=== PATIENT | female | born 1940 | race Caucasian/White ===

== ENCOUNTER 2021-05-26 09:37 | Emergency (ER) | payer MEDICARE, MEDICAID, SELFPAY ==
[2021-05-26] VITALS (14 sets, daily range): BP systolic 142–185; BP diastolic 63–83; PULSE 62–73; RESP 13–21; TEMP 36.6; O2SAT 95–97; BMI 30.2
--- NOTE | 2021-05-26 09:58 | DI.RAD.S_ITS ---
PROCEDURE: XR CHEST 1V INDICATIONS: chest pain TECHNIQUE: One view of the chest was acquired. COMPARISON: [facility], CT, CT ANGIO CHEST PE, 08/16/2020, 19:38. [facility], CR, XR CHEST 1 VIEW, 01/25/2021, 15:30. FINDINGS: Surgical changes and devices: None. Lungs and pleura: An incomplete inspiratory result is noted, causing a crowded appearance to the lung markings. No focal infiltrates are seen. No pneumothorax or significant pleural effusions are seen. Mediastinum: Mediastinal contours appear normal. Heart size is normal. Atherosclerotic calcification of the aortic arch is noted. Bones and chest wall: No suspicious bony lesions. Age-appropriate bony degenerative changes are seen. Overlying soft tissues appear unremarkable. IMPRESSION: Portable chest within normal limits. Dictated by: Figueroa Proctor M.D. on 05/26/2021 at 9:24 Approved by: Figueroa Proctor M.D. on 05/26/2021 at 9:25
[2021-05-26 10:07] LABS: Add Manual Diff / Slide Review NO; Basophils Absolute Auto 0 /uL (0-100); Basophils Percent Auto 1.3 % (0-2); Eosinophils Absolute Auto 100 /uL (0-450); Hematocrit 39.5 % (36-46); Hemoglobin 13.4 g/dL (12.0-16.0); Lymphocytes Absolute Auto 800 /uL (1100-4500); Lymphocytes Percent Auto 24.5 % (25-40); Mean Corpuscular Hemoglobin 31.4 PG (26-34); Mean Corpuscular Volume 92.5 fL (80-100); Monocytes Absolute Auto 300 /uL (0-900); Monocytes Percent Auto 8.4 % (3-14); Neutrophils Absolute Auto 2100 /uL (1500-7000); Neutrophils Percent Auto 61.8 % (50-75); Platelet Count 136 X10^3/uL (150-400); Red Blood Cell Count 4.27 X10^6/uL (4.0-5.2); Red Cell Distribution Width 13.4 % (11.6-14.8); White Blood Cell Count 3.3 X10^3/uL (4.5-11.0)
[2021-05-26 10:14] LABS: Alanine Aminotransferase 16 IU/L (<35); Albumin 4.7 g/dL (3.5-5.0); Albumin Globulin Ratio 1.4 (1.0-2.8); Alkaline Phosphatase 72 U/L (38-126); Aspartate Aminotransferase 30 IU/L (14-36); BUN Creatinine Ratio 15.9 (6-22); Blood Urea Nitrogen 14 mg/dL (7-17); Carbon Dioxide 26 mmol/L (22-32); Chloride 106 mmol/L (98-107); Creatine Kinase 86 U/L (30-135); Estimated Glomerular Filt Rate > 60.0 mL/min (>60); Globulin 3.3 g/dL (1.7-4.1); Glucose 105 mg/dL (80-110); HEMOLYSIS < 15 (0-50); Lipase 93 U/L (23-300); Magnesium 1.9 mg/dL (1.6-2.3); Sodium 139 mmol/L (137-145)
[2021-05-26 10:16] LABS: Prothrombin Time 11.7 SECONDS (10.1-12.7)
[2021-05-26 10:19] LABS: PTT Partial Thromboplastin Tim 31 SECONDS (26.4-36.2)
[2021-05-26 10:26] LABS: Troponin I 0.028 ng/mL (0.01-0.034)
--- NOTE | 2021-05-26 10:53 | ED.CHESTPAIN ---
HPI - Chest Pain General Chief Complaint: Chest Pain Stated Complaint: chest pain, blood pressure high Time Seen by Provider: 05/26/21 10:52 Source: patient and family Mode of arrival: Ambulatory Limitations: language barrier Limitations: no limitations History of Present Illness HPI narrative: This is an 80-year-old female who is Nauruan-speaking. Her son is translating for her at bedside. Patient has had 3 days of chest pain which has been persistent but worsened when her blood pressure is high and improves when it comes back down but does not completely resolve. It radiates to her left back. She denies shortness of breath. No cold, cough or congestion. No fevers. She has had nausea when her blood pressure is high with this but it improves when her blood pressure comes back down. She has not had any vomiting. She denies any diarrhea constipation. No urinary issues. She does have a history of hypertension, dyslipidemia and diabetes. She is on multiple antihypertensives including carvedilol, chlorthalidone, clonidine, hydralazine as well as atorvastatin. Patient states no cardiac stents she had a heart catheterization approximately 10 years ago which was negative. Patient is allergic to penicillin and amlodipine but does not recall what happens with amlodipine. No tobacco, alcohol or illicit. Dr. Lim is her PCP. She has seen a dough machine operator in the past but very remotely. Related Data Home Medications Medication Instructions Recorded Confirmed alendronate 70 mg tablet 70 mg PO QWEEK 05/26/21 05/26/21 aspirin 81 mg tablet,delayed 81 mg PO DAILY 05/26/21 05/26/21 release atorvastatin 40 mg tablet 40 mg PO QPM 05/26/21 05/26/21 carvedilol 6.25 mg tablet 6.25 mg PO BID 05/26/21 05/26/21 chlorthalidone 25 mg tablet 25 mg PO DAILY 05/26/21 05/26/21 cholecalciferol (vitamin D3) 25 25 mcg PO DAILY 05/26/21 05/26/21 mcg (1,000 unit) tablet ciprofloxacin HCl 250 mg tablet 125 mg PO DAILY 05/26/21 05/26/21 (Cipro) clonidine HCl 0.1 mg tablet 0.1 mg PO BID 05/26/21 05/26/21 diclofenac sodium 1 % topical gel 2 g TOPICAL QID 05/26/21 05/26/21 fluticasone propionate 50 1 spray INTRANASAL BID 05/26/21 05/26/21 mcg/actuation nasal spray,suspension gabapentin 100 mg capsule 100 mg PO TID 05/26/21 05/26/21 hydralazine 10 mg tablet 20 mg PO BID 05/26/21 05/26/21 lorazepam 0.5 mg tablet 0.5 mg PO DAILY PRN 05/26/21 05/26/21 meloxicam 7.5 mg tablet 7.5 mg PO DAILY 05/26/21 05/26/21 nitrofurantoin 50 mg capsule 50 mg PO QPM 05/26/21 05/26/21 omeprazole 20 mg capsule,delayed 20 mg PO DAILY 05/26/21 05/26/21 release sertraline 50 mg tablet 75 mg PO DAILY 05/26/21 05/26/21 sulfamethoxazole 800 1 tab PO BID 05/26/21 mg-trimethoprim 160 mg tablet zolpidem 5 mg tablet 2.5 mg PO BEDTIME PRN 05/26/21 05/26/21 Previous Rx's Medication Instructions Recorded hydralazine 10 mg tablet 20 mg PO TID #30 tab 05/26/21 Allergies Allergy/AdvReac Type Severity Reaction Status Date / Time nitroglycerin Allergy Verified 05/26/21 11:47 Review of Systems Review of Systems ROS Unobtainable: All systems reviewed & are unremarkable except as noted in HPI and below Patient History Social History Smoking Status: Never smoker Smoking Status: Never smoker alcohol intake frequency: other Substance Use Type: does not use Exam Narrative Exam Narrative: GENERAL: Alert and oriented x three, elderly female in mild distress. HEENT: Head normocephalic, atraumatic, EOMI, pupils reactive, face symmetric, moist mucous membranes NECK: Supple, full range of motion CARDIOVASCULAR: Regular rate and rhythm without murmurs, rubs or gallops. JVD. No reproducible chest pain. No rash, erythema or skin changes appreciated. RESPIRATORY: Breath sounds equal bilaterally, no wheezes rales or rhonchi. ABDOMEN: Soft, nontender. Normoactive bowel sounds all 4 quadrants. No guarding or rebound, rigidity, no mass. No bruit or pulsatile mass. : No CVA tenderness EXTREMITIES: Normal range of motion, no clubbing, trace bilateral lower extremity edema. Neurovascularly intact NEUROLOGICAL: Cranial nerves II through XII grossly intact. Moving all extremities SKIN: Warm, dry, no petechiae, no rashes or lesions. Initial Vital Signs Initial Vital Signs: Vital Signs Pulse Rate 73 05/26/21 09:51 Pulse Oximetry 96 05/26/21 09:51 Course Orders Ordered: ED Orders 05/26/21 09:58 XR chest 1V Stat EKG-12 Lead Stat 05/26/21 10:00 BNP [NT-proBNP (BNP-Adult 18+)] Stat Complete Blood Count AUTO DIFF Stat Comprehensive Metabolic Panel Stat Lipase Stat Magnesium Stat Partial Thromboplastin Time Stat Prothrombin Time INR Stat Troponin & CK Cardiac Panel Stat 05/26/21 11:15 COVID19 -Nasal swab/Pre-Proc Stat 05/26/21 12:00 Troponin I Stat Nitroglycerin (Nitroglycerin 0.4 Mg Sl Tab) 0.4 mg SL [id number] PRN PRN Reason: Chest Pain Discontinued Medications Aspirin (Aspirin 81 Mg Chew Tab) 324 mg PO NOW ONE Stop: 05/26/21 11:29 Last Admin: 05/26/21 11:43 Dose: 243 mg Documented by: TAVIA Hydralazine HCl (Hydralazine 10 Mg Tablet) 10 mg PO NOW ONE Stop: 05/26/21 11:57 Last Admin: 05/26/21 12:08 Dose: 10 mg Documented by: TAVIA Reevaluation(s) Reevaluation #1: Patient and I discussed she is positive for coronavirus today. Her EKG does not show acute changes. Troponin is negative x2. We did give an extra dose of her normal hydralazine which is actually recommended on her home medication list from her primary care provider. Discussed with patient I suspect her pain is from coronavirus. Patient's chest x-ray is clear. She has been hypertensive persistently. Otherwise lab abnormalities are consistent with coronavirus. All questions answered with her and her son. Vital Signs Vital signs: Vital Signs - 8 hr 05/26/21 09:51 05/26/21 09:52 05/26/21 09:56 Temperature 97.9 F Pulse Rate 73 72 63 Respiratory Rate 18 Blood Pressure 185/81 H 185/81 H Pulse Oximetry 96 95 95 05/26/21 10:00 05/26/21 10:30 05/26/21 11:00 Temperature Pulse Rate 63 62 63 Respiratory Rate 14 13 18 Blood Pressure 157/71 H 142/63 H 165/75 H Pulse Oximetry 95 95 95 05/26/21 11:34 05/26/21 11:37 05/26/21 12:00 Temperature Pulse Rate 69 67 70 Respiratory Rate 21 15 19 Blood Pressure 178/83 H Pulse Oximetry 96 96 97 05/26/21 12:01 05/26/21 12:08 05/26/21 12:30 Temperature Pulse Rate 70 69 64 Respiratory Rate 15 Blood Pressure 171/79 H 171/79 H 155/75 H Pulse Oximetry 97 95 05/26/21 12:52 05/26/21 13:00 Temperature Pulse Rate 67 71 Respiratory Rate 20 Blood Pressure 155/75 H 171/77 H Pulse Oximetry 97 MDM - Chest Pain Lab Data Result diagrams: 05/26/21 10:00 05/26/21 10:00 Labs: Lab Results 05/26/21 05/26/21 05/26/21 Range/Units 10:00 10:00 10:00 WBC 3.3 L (4.5-11.0) X10^3/uL RBC 4.27 (4.0-5.2) X10^6/uL Hgb 13.4 (12.0-16.0) g/dL Hct 39.5 (36-46) % MCV 92.5 (80-100) fL MCH 31.4 (26-34) PG MCHC 34.0 (30-36) % RDW 13.4 (11.6-14.8) % Plt Count 136 L (150-400) X10^3/uL Neut % (Auto) 61.8 (50-75) % Lymph % (Auto) 24.5 L (25-40) % [place] % (Auto) 8.4 (3-14) % Eos % (Auto) 4.0 (2-4) % Baso % (Auto) 1.3 (0-2) % Neut # (Auto) 2100 (5793-9531) /uL Lymph # (Auto) 800 L (8012-6605) /uL [place] # (Auto) 300 (0-900) /uL Eos # (Auto) 100 (0-450) /uL Baso # (Auto) 0 (0-100) /uL PT 11.7 (10.1-12.7) SECONDS INR 1.0 (0.9-1.3) APTT 31 (26.4-36.2) SECONDS Sodium 139 (137-145) mmol/L Potassium 4.0 (3.4-5.1) mmol/L Chloride 106 (98-107) mmol/L Carbon Dioxide 26 (22-32) mmol/L BUN 14 (7-17) mg/dL Creatinine 0.88 (0.52-1.04) mg/dL Estimated GFR > 60.0 (>60) mL/min BUN/Creatinine Ratio 15.9 (6-22) Glucose 105 (80-110) mg/dL Calcium 10.0 (8.4-10.2) mg/dL Magnesium 1.9 (1.6-2.3) mg/dL Total Bilirubin 1.0 (0.2-1.3) mg/dL AST 30 (14-36) IU/L ALT 16 (<35) IU/L Alkaline Phosphatase 72 (38-126) U/L Total Creatine Kinase 86 (30-135) U/L CK-MB (CK-2) TNP CK-MB (CK-2) Rel Index TNP Troponin I 0.028 (0.01-0.034) ng/mL NT-Pro-B Natriuret Pep (<450) pg/mL Total Protein 8.0 (6.3-8.2) g/dL Albumin 4.7 (3.5-5.0) g/dL Globulin 3.3 (1.7-4.1) g/dL Albumin/Globulin Ratio 1.4 (1.0-2.8) Lipase 93 (23-300) U/L SARS-CoV-2 (PCR) (Negative) 05/26/21 05/26/21 05/26/21 Range/Units 10:00 11:15 12:00 WBC (4.5-11.0) X10^3/uL RBC (4.0-5.2) X10^6/uL Hgb (12.0-16.0) g/dL Hct (36-46) % MCV (80-100) fL MCH (26-34) PG MCHC (30-36) % RDW (11.6-14.8) % Plt Count (150-400) X10^3/uL Neut % (Auto) (50-75) % Lymph % (Auto) (25-40) % [place] % (Auto) (3-14) % Eos % (Auto) (2-4) % Baso % (Auto) (0-2) % Neut # (Auto) (3161-8822) /uL Lymph # (Auto) (4185-6534) /uL [place] # (Auto) (0-900) /uL Eos # (Auto) (0-450) /uL Baso # (Auto) (0-100) /uL PT (10.1-12.7) SECONDS INR (0.9-1.3) APTT (26.4-36.2) SECONDS Sodium (137-145) mmol/L Potassium (3.4-5.1) mmol/L Chloride (98-107) mmol/L Carbon Dioxide (22-32) mmol/L BUN (7-17) mg/dL Creatinine (0.52-1.04) mg/dL Estimated GFR (>60) mL/min BUN/Creatinine Ratio (6-22) Glucose (80-110) mg/dL Calcium (8.4-10.2) mg/dL Magnesium (1.6-2.3) mg/dL Total Bilirubin (0.2-1.3) mg/dL AST (14-36) IU/L ALT (<35) IU/L Alkaline Phosphatase (38-126) U/L Total Creatine Kinase (30-135) U/L CK-MB (CK-2) CK-MB (CK-2) Rel Index Troponin I 0.012 (0.01-0.034) ng/mL NT-Pro-B Natriuret Pep 448 (<450) pg/mL Total Protein (6.3-8.2) g/dL Albumin (3.5-5.0) g/dL Globulin (1.7-4.1) g/dL Albumin/Globulin Ratio (1.0-2.8) Lipase (23-300) U/L SARS-CoV-2 (PCR) Positive H (Negative) Urine Dip Bedside Urine Glucose Negative Bedside Urine Bilirubin - Negative Bedside Urine Ketone - Negative Urine Specific [place] 1.015 Bedside Urine Occult Blood - Negative Bedside Urine pH 6.0 Bedside Urine Protein - Negative Bedside Urine Urobilinogen 0.2 Bedside Urine Nitrite - Negative Bedside Urine Leukocytes - Negative Esterase Imaging Data Chest x-ray: Radiologist's Impression: [address] [address] XRay Report Signed Patient: Vonnie Corona MR#: [id number] : 1940 Acct:[id number] Age/Sex: 80 / F Date of Service: 05/26/21 Loc: ED Accession Number: [id number] ?? Procedure: XR chest 1V Ordering Provider: Yarely Johns D.O. PROCEDURE:? XR CHEST 1V ? INDICATIONS:? chest pain ? TECHNIQUE:? One view of the chest was acquired.? ? COMPARISON:? [facility], CT, CT ANGIO CHEST PE, 08/16/2020, 19:38.? [facility], CR, XR CHEST 1 VIEW, 01/25/2021, 15:30. ? FINDINGS:? ? Surgical changes and devices:? None.? ? Lungs and pleura:? An incomplete inspiratory result is noted, causing a crowded appearance to the lung markings.? No focal infiltrates are seen.? No pneumothorax or significant pleural effusions are seen. ? ? Mediastinum:? Mediastinal contours appear normal.? Heart size is normal.? Atherosclerotic calcification of the aortic arch is noted.? ? Bones and chest wall:? No suspicious bony lesions.? Age-appropriate bony degenerative changes are seen.? ? Overlying soft tissues appear unremarkable.? IMPRESSION:? ? Portable chest within normal limits. ? ? ? Dictated by: Figueroa Proctor M.D. on 05/26/2021 at 9:24 ? ? Approved by: Figueroa Proctor M.D. on 05/26/2021 at 9:25?? ECG Data Attestation: I personally reviewed and interpreted this ECG as follows: Prior ECG tracings: not available for review Interpretation: Sinus rhythm rate of 64 MS 180 QRS is 66 and QTC of 427. Q-wave in lead 3 and AVF. No elevation appreciated. Possible motion artifact in V3 V4 does not appear to be elevated otherwise a biphasic T-wave. Patient does not have any priors available for comparison. MDM Narrative Medical decision making narrative: This is an 80-year-old female who comes emergency department with complaint of left-sided chest pain that is been persistent for 3 days but waxing waning intensity particular she notes when her blood pressure is high. She has had some nausea but denies other symptoms. She does have a history of hypertension on multiple medications, dyslipidemia but no known coronary artery disease. Her last heart catheterization was 10 years ago and was negative at that time. Patient was initially going to receive nitro but states she cannot tolerate this. She received aspirin and additional dose of her hydralazine. Chest x-ray and lab work were reviewed, EKG does not show acute changes I do not have priors for comparison but she is positive for coronavirus. Based on having 3 days of symptoms with negative troponin EKG suspect her chest pain is from the coronavirus. She is not tachycardic, hypotensive or have other changes consistent with pulmonary emboli my suspicion is significantly lower. We did discuss if she has persistently hypertensive she can add her 3rd dose of hydralazine. If she continues to have elevated pressures I did ask her to contact her primary care for medication adjustment. Discharge Plan Departure Patient Disposition: Home Clinical Impression: Chest pain, COVID-19 virus infection Instructions: DI for COVID-19 (Suspected or Confirmed ) Activity Restrictions/Additional Instructions: Follow-up with your physician for recheck. Continue to monitor your blood pressure. If it is persistently elevated a pill of 160 please increase your hydralazine as below. You are positive coronavirus today. You may increase your hydralazine to 2 tablets every 8 hours instead of 2 tablets every 12 hours. Prescription sent to [facility] in [facility] *You have been diagnosed with coronavirus infection. If you wish you may obtain a pulse oximeter for use at home to monitor. Please return to the ER if your pulse oximeter shows an O2 saturation less than 92%. *What to do: * per recommendations from the CDC and the [facility] Department of Health * stay home except to get medical care. Restrict activities outside your home, except for getting medical care. Do not go to work, school, or public areas. Avoid using public transportation, ride sharing, or taxis. * separate yourself from other people in your home. * call ahead before visiting your doctor * Wear a face mask * Cover your coughs and sneezes * Clean your hands often * Avoid sharing household items * Clean all high-touch services every day * Monitor your symptoms and seek prompt medical attention if your illness is worsening, particularly with difficulty in breathing. Discussed continuing home isolation * for individuals with symptoms who are confirmed or suspected cases of COVID-19 and are directed to care for themselves at home, discontinue home isolation under the following conditions: 1. At least 72 hours have passed since recovery, defined as resolution of fever without the use of fever reducing medications, and improvement in respiratory symptoms (cough, shortness of breath) AND, 2. At least 7 days have passed since symptoms 1st appeared Individuals with laboratory confirmed COVID-19 who have not had any symptoms may discontinue home isolation when at least 7 days have passed since the date of their 1st COVID-19 diagnostic test and have had no subsequent illness Prescriptions: New hydralazine 10 mg tablet 20 mg PO TID Qty: 30 0RF No Action atorvastatin 40 mg Tablet 40 mg PO QPM 0RF hydralazine 10 mg Tablet 20 mg PO BID 0RF Rx Instructions: Take an extra dose of hydralazine as needed if systolic BP is over 150 clonidine HCl 0.1 mg Tablet 0.1 mg PO BID 0RF carvedilol 6.25 mg Tablet 6.25 mg PO BID 0RF Rx Instructions: must administer with a meal/food alendronate 70 mg tablet 70 mg PO QWEEK 0RF Label Comments: Take 1 tablet (70 mg total) by mouth every 7 days Take in the morning with a full glass of water, on an empty stomach, and do not take anything else by mouth or lie down for the next 30 min. chlorthalidone 25 mg Tablet 25 mg PO DAILY 0RF ciprofloxacin HCl [Cipro] 250 mg Tablet 125 mg PO DAILY 0RF sulfamethoxazole-trimethoprim 800-160 mg Tablet 1 tab PO BID 0RF aspirin [Adult Aspirin EC Low Strength] 81 mg Tablet,Delayed Release (Dr/Ec) 81 mg PO DAILY 0RF meloxicam 7.5 mg Tablet 7.5 mg PO DAILY 0RF Rx Instructions: one to two tabs daily lorazepam 0.5 mg Tablet 0.5 mg PO DAILY PRN (Reason: Anxiety) 0RF omeprazole 20 mg Capsule,Delayed Release(Dr/Ec) 20 mg PO DAILY 0RF zolpidem 5 mg Tablet 2.5 mg PO BEDTIME PRN (Reason: Sleep) 0RF Rx Instructions: 2.5-5mg nightly prn sleep gabapentin 100 mg Capsule 100 mg PO TID 0RF fluticasone propionate 50 mcg/actuation [place],Suspension 1 spray INTRANASAL BID 0RF Rx Instructions: administer into each nostril sertraline 50 mg Tablet 75 mg PO DAILY 0RF cholecalciferol (vitamin D3) 25 mcg (1,000 unit) Tablet 25 mcg PO DAILY 0RF nitrofurantoin 50 mg Capsule 50 mg PO QPM 0RF diclofenac sodium 1 % Gel 2 g TOPICAL QID 0RF Rx Instructions: apply to painful area of chest wall 3-4x/day
[2021-05-26 11:34] LABS: NT-proBNP (BNP-Adult 18+) 448 pg/mL (<450)
[2021-05-26] MEDS: ASPIRIN 81 MG CHEW TAB 324 MG PO (11:43)
[2021-05-26 11:46] LABS: COVID19 -Nasal RAPID POSITIVE (Negative)
[2021-05-26] MEDS: HYDRALAZINE 10 MG TABLET PO (12:08)
[2021-05-26 12:33] LABS: Troponin I 0.012 ng/mL (0.01-0.034)
== END 2021-05-26 13:37 | disposition home or self-care (01) ==
PROVIDERS: Emergency Provider Emergency Medicine
DX: U07.1 COVID-19 (principal); R07.9 Chest pain, unspecified; Z88.8 Allergy status to other drugs, medicaments and biological substances
CPT/HCPCS: 36415; 71045; 80053; 81003; 82550; 83690; 83735; 83880; 84484; 85025; 85610; 85730; 87635; 93005; 93010; 99284; C9803